=== PATIENT | female | born 1990 | race Caucasian/White ===

== ENCOUNTER 2021-08-27 08:12 | Outpatient (REF) | payer OTHER, SELFPAY ==
[2021-08-27 11:15] LABS: Hematocrit 44.2 % (37.0-47.0); Hemoglobin 13.5 g/dl (12.0-16.0); Mean Corpuscular HGB Conc 30.5 g/dl (31.0-35.0); Mean Corpuscular Hemoglobin 22.2 pg (27.0-33.0); Mean Corpuscular Volume 72.6 fL (80.0-98.0); Mean Platelet Volume 11.3 fL (9.4-12.3); Platelet Count 313 X10*3/uL (160-400); Red Blood Count 6.09 X10*6/uL (4.20-5.50); Red Cell Distribution Width 15.9 % (11.0-16.0)
[2021-08-27 11:51] LABS: TSH reflex Free T4 1.27 uIU/mL (0.32-4.0)
[2021-08-27 11:57] LABS: Alanine Aminotransferase 25 U/L (0-31); Albumin Level 4.3 g/dL (3.5-5.0); Alkaline Phosphatase 67 U/L (39-117); Anion Gap 10 (12-20); Aspartate Amino Transferase 19 U/L (5-31); Bilirubin Total 0.3 mg/dL (0.0-1.0); Blood Urea Nitrogen 9 mg/dL (9-16); Calcium 9.5 mg/dL (8.4-10.2); Carbon Dioxide 27 mmol/L (22-29); Chloride 107 mmol/L (96-108); Cholesterol 177 mg/dL; Estimated Glomerular Filt Rate > 60; Glucose Fasting 84 mg/dL (60-99); HDL Cholesterol 47 mg/dL; LDL Cholesterol Calculated 112 mg/dl; Potassium 4.3 mmol/L (3.3-5.1); Sodium 140 mmol/L (135-145); Total Protein 7.6 g/dL (6.5-8.0); Triglycerides 94 mg/dL
== END 2021-08-27 08:13 | disposition home or self-care (01) ==
LOC: HO.HMGCLDS 08:12
PROVIDERS: PCP Internal Medicine; Visit Provider Internal Medicine
DX: Z00.00 Encounter for general adult medical examination without abnormal findings (principal); E28.2 Polycystic ovarian syndrome; M79.7 Fibromyalgia
CPT/HCPCS: 36415; 80053; 80061; 84443; 85027

== ENCOUNTER 2023-09-04 10:51 | Emergency (ER) | payer OTHER, SELFPAY ==
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
[2023-09-04 11:22] VITALS: BP 111/82; PULSE 58; RESP 18; TEMP 36.3; O2SAT 99; BMI 30.1
[2023-09-04 11:50] LABS: UPreg QC Valid YES; Urine Pregnancy NEGATIVE (NEGATIVE)
[2023-09-04 14:14] VITALS: BP 111/82; PULSE 58; RESP 18; TEMP 36.3; O2SAT 99
== END 2023-09-04 14:24 | disposition home or self-care (01) ==
LOC: HO.ED 14:18
PROVIDERS: Registered Nurse Emergency; Emergency Provider Student in an Organized Health Care Education/Training Program; PCP Internal Medicine
DX: S06.0X0A Concussion without loss of consciousness, initial encounter (principal); S00.83XA Contusion of other part of head, initial encounter; V47.6XXA Car passenger injured in collision with fixed or stationary object in traffic accident, initial encounter; Y93.9 Activity, unspecified; Y92.410 Unspecified street and highway as the place of occurrence of the external cause; Y99.9 Unspecified external cause status
CPT/HCPCS: 70450; 70486; 81025; 99282; 99284